=== PATIENT | female | born 1995 | race Caucasian/White ===

== ENCOUNTER 2018-03-26 14:01 | Emergency (ER) | payer MEDICAID, OTHER ==
[~2018-03-26] VITALS: Ht 167.6 cm; Wt 53.0 kg
[~2018-03-26 14:01] MED LIST: NO HOME MEDS
[2018-03-26] MEDS ORDERED: ondansetron 4mg rapidly disintigrating tab PO ONE (14:20)
[2018-03-26] MEDS ORDERED: HYDR-3965 PO (15:04)
[2018-03-26 15:14] VITALS: BP 116/73
== END 2018-03-26 15:16 | disposition home or self-care (01) ==
LOC: ER 14:02
DX: K42.9 Umbilical hernia without obstruction or gangrene (principal); Z88.5 Allergy status to narcotic agent
CPT/HCPCS: 99284

== ENCOUNTER 2023-06-10 18:21 | Emergency (ER) | payer MEDICAID ==
[~2023-06-10] VITALS: Ht 162.6 cm; Wt 63.6 kg
[2023-06-10 18:53] VITALS: BP 107/74
[2023-06-10] MEDS ORDERED: neomy sulf/polymyx B sulf/HC 10ml otic suspension RIGHT EAR ONE (19:55)
[2023-06-10] MEDS ORDERED: NEOM10DR45 RIGHT EAR (19:58)
[2023-06-11] MEDS ORDERED: AMOX-117 PO (20:28)
== END 2023-06-10 20:18 | disposition home or self-care (01) ==
LOC: ER 18:22
DX: H60.8X1 Other otitis externa, right ear (principal); Z88.5 Allergy status to narcotic agent; Z79.899 Other long term (current) drug therapy; Z88.8 Allergy status to other drugs, medicaments and biological substances
CPT/HCPCS: 99283

== ENCOUNTER 2023-06-11 18:38 | Emergency (ER) | payer MEDICAID ==
[~2023-06-11] VITALS: Ht 162.6 cm; Wt 63.0 kg
[~2023-06-11 18:38] MED LIST changes: +NEOM10DR45 RIGHT EAR
[2023-06-11 18:48] VITALS: BP 125/69
[2023-06-11] MEDS ORDERED: AMOX-117 PO (20:28)
[2023-06-11] MEDS ORDERED: acetaminophen 325mg tablet PO ONE (20:30)
[2023-06-11] MEDS ORDERED: amox tr/potassium clavulanate 875/125mg TAB PO ONE (20:30)
== END 2023-06-11 20:47 | disposition home or self-care (01) ==
LOC: ER 18:39
DX: H60.8X1 Other otitis externa, right ear (principal); L03.211 Cellulitis of face; Z88.5 Allergy status to narcotic agent; Z88.8 Allergy status to other drugs, medicaments and biological substances; Z79.899 Other long term (current) drug therapy
CPT/HCPCS: 99283